=== PATIENT | male | born 1940 | race Caucasian/White ===

== ENCOUNTER 2024-12-17 00:02 | Inpatient (IN) | payer MEDICARE, OTHER, SELFPAY ==
[2024-12-16 20:13] VITALS: BP 153/70
[2024-12-16 20:14] VITALS: BP 153/70
[2024-12-16 20:15] VITALS: BMI 24.0
[2024-12-16 20:29] VITALS: BP 137/58
[2024-12-16 20:41] LABS: % Basophils 0.3 % (0-2); % Eosinophils 0.4 % (0-6); % Immature Granulocytes 0.4 % (0-0.5); % Monocytes 5.2 % (1.7-9.3); % Neutrophils 86.7 % (42.2-75.2); Absolute Basophils 0.1 10^3/uL (0-0.2); Absolute Eosinophils 0.1 10^3/uL (0-0.7); Absolute Immature Granulocytes 0.1 10^3/uL (0-0.05); Absolute Lymphocytes 1.1 10^3/uL (1.2-3.4); Absolute Monocytes 0.8 10^3/uL (0.1-0.6); Absolute Neutrophils 13.8 10^3/uL (1.4-6.5); Hematocrit 36.9 % (39.0-52.0); Hemoglobin 12.5 g/dL (13.0-18.0); Mean Corp Hgb Conc. 33.9 g/dL (33.0-37.0); Mean Corpuscular Hgb 30.5 pg (27.0-31.0); Mean Platelet Volume 10.4 fL (7.4-10.4); Nucleated Red Blood Cells % 0 % (-); Platelet Count 168 10^3/uL (130-400); Red Cell Dist. Width 14.1 % (11.5-14.5); White Blood Cell Count 15.9 10^3/uL (4.8-10.8)
[2024-12-16 21:00] VITALS: BP 116/69
[2024-12-16 21:00] LABS: Lactic Acid 2.4 mmol/L (0.7-2.0)
[2024-12-16 21:01] LABS: ALT (SGPT) 21 U/L (0-50); AST (SGOT) 24 U/L (17-59); Albumin 4.5 g/dl (3.5-5.0); Alkaline Phosphatase 141 U/L (38-126); Blood Urea Nitrogen 33 mg/dl (9-20); Calcium 10.6 mg/dl (8.4-10.2); Carbon Dioxide 20 mmol/L (22-30); Chloride 106 mmol/L (98-107); Estimated Creatinine Clearance 55 ml/min; Glucose 139 mg/dl (70-99); Potassium 4.5 mmol/L (3.5-5.1); Sodium 139 mmol/L (135-145); Total Bilirubin 0.9 mg/dl (0.2-1.3); Total Protein 6.8 g/dl (6.3-8.2); eGFR > 60.00
[2024-12-16 21:03] LABS: COVID-19 Antigen Negative (Negative)
[2024-12-16] MEDS: TYLENOL 650 MG PO (21:04)
[2024-12-16 22:06] VITALS: BP 112/56
--- NOTE | 2024-12-16 22:14 | ED.GENMED ---
History of Present Illness
General
Chief Complaint: Change in Mental Status
Source: patient and spouse
Exam Limitations: none
Time Seen by Provider: 12/16/24 20:16
Nursing documentation reviewed up to this point in time: agreed with
History of Present Illness
History of Present Illness:
The patient is an 84-year-old male with a known history of chronic obstructive pulmonary disease (COPD), atrial fibrillation, prior cerebrovascular accidents, and a history of heart surgery including a triple bypass, presenting with altered mental
status and fever. According to his spouse, the patient has not been acting like himself and was noted to have a fever on arrival at the emergency department. Approximately one month ago, the patient underwent extraction of teeth and has been unable
to use his BiPAP due to associated pain and the presence of stitches. He has been managing with four liters of oxygen during sleep and is on a mechanical soft diet with thickened liquids. The patient has a history of aspiration, which necessitates
sleeping with an elevated head.
His spouse reports increased weakness, difficulty in getting out of bed, significantly reduced appetite with consumption of only 20% of meals, and constipation, with no bowel movements noted since the previous day. The patient also reports
experiencing central chest pain, abdominal pain, and has vomited once. He denies any recent upper respiratory symptoms like nasal congestion or sore throat, but he has been coughing.
In terms of clinical observations, his heart rate was reportedly high and oxygen saturation was low at 87% when checked. The patients spouse also mentioned that his INR was measured at 1.4, which they found concerning due to his Coumadin usage. The
patient usually has bowel movements three times a day but has not had one recently, contributing to abdominal discomfort.
Past History
Past History
ED Past Medical History: Arrthythmia, COPD, HTN, Valvular disease and Other (Pulmonary hypertension)
ED Past Surgical History: Cardiac
Social History
Personal:
Living: with family
Employment: Retired
Review of Systems
Review of Systems
Allergies reviewed?: Yes
All Other Systems: ROS reviewed and negative except as documented in HPI and ROS
Phy Exam
Physical Exam
Physical Exam:
GENERAL: Alert , in no apparent distress
EYE: pupils equal and reactive
NECK: Supple, no significant adenopathy.
ENT: o/p clr, mmm.
CARDIAC: Regular rate and rhythm .
LUNGS: Clear breath sounds bilaterally, no acute respiratory distress, no wheezes/rales/rhonchi
ABDOMEN: Soft, without focal tenderness, no r/g, no cvat
NEUROLOGICAL: Alert no focal neuro deficits
SKIN: Warm and dry, skin intact.
MUSCULOSKELETAL: No edema, well perfused.
PSYCH: Normal and appropriate interaction.
Course
Orders/Labs/Results
Orders:
Orders
12/16/24 20:06
Electrocardiogram (*1) Urgent
Reason for Study: Tachycardia
EKG- Treatment ONCE
12/16/24 20:16
Chest [CR Chest - 2 Views ] Urgent
Comment:
Reason For Exam: fever
12/16/24 20:26
CMP [Comprehensive Metabolic Panel] Urgent
COVID-19 Antigen Urgent
Source: Nasal Swab
Complete Blood Count/With Diff Urgent
Lactic Acid Urgent
Blood Culture Urgent
HARSH Source: Blood/Venous
Specimen Description:
Blood Culture Urgent
HARSH Source: Blood/Venous
Specimen Description:
Influenza A+B Rapid Molecular Urgent
HARSH Source: Nasal Swab
Specimen Description:
12/16/24 21:01
Acetaminophen [Tylenol] 650 mg .ROUTE .STK-MED ONE
12/16/24 21:04
Acetaminophen [Tylenol] 650 mg PO NOW STA
12/16/24 21:27
CT Abd/Pel (IV only)-DH only Urgent
Comment:
Reason For Exam: abd pain fever, juan drain in place
12/16/24 22:15
CT Head W/o Iv Contrast Urgent
Comment:
Reason For Exam: AMS
PT/INR [Prothrombin Time] Urgent
12/16/24 22:16
Cefepime HCl [Maxipime] 1,000 mg IV NOW STA
Vancomycin [Vancocin] 2,000 mg 0.9% Sodium Chloride 500 ml [Nss] 500 ml IV NOW
12/16/24 22:18
0.9% Sodium Chloride 1000 ml [Nss] 1,000 ml IV BOLUS
Abnormal Lab Results
12/16/24
20:26
WBC 15.9 H 10^3/uL
(4.8-10.8)
RBC 4.10 L 10^6/uL
(4.70-6.10)
Hgb 12.5 L g/dL
(13.0-18.0)
Hct 36.9 L %
(39.0-52.0)
Abs Immat Gran (auto) 0.1 H 10^3/uL
(0-0.05)
Absolute Neuts (auto) 13.8 H 10^3/uL
(1.4-6.5)
Absolute Lymphs (auto) 1.1 L 10^3/uL
(1.2-3.4)
Absolute Monos (auto) 0.8 H 10^3/uL
(0.1-0.6)
Neutrophils % 86.7 H %
(42.2-75.2)
Lymphocytes % 7.0 L %
(20.5-51.1)
Carbon Dioxide 20 L mmol/L
(22-30)
BUN 33 H mg/dl
(9-20)
Glucose 139 H mg/dl
(70-99)
Lactic Acid 2.4 H mmol/L
(0.7-2.0)
Calcium 10.6 H mg/dl
(8.4-10.2)
Alkaline Phosphatase 141 H U/L
(38-126)
12/16/24 20:26
12/16/24 20:26
Vital Signs
Initial and Last Documented VS:
Initial Vital Signs
Pulse Resp BP
95 31 153/70
12/16/24 20:13 12/16/24 20:13 12/16/24 20:13
Last Documented Vital Signs
Temp Pulse Resp BP Pulse Ox
102.4 F H 84 30 112/56 93
12/16/24 20:14 12/16/24 22:06 12/16/24 22:06 12/16/24 22:06 12/16/24 22:06
MDM/Problems Addressed
MDM/Problems Addressed:
84-year-old male presenting to the emergency department today with concerns of fevers shakiness confusion. Here temperature of 102.4 pulse ox is dropping to the 80s while on nasal cannula.
Arrangements for a chest X-ray to rule out aspiration pneumonia and assess lung status.
- A computed tomography (CT) scan of the abdomen to evaluate for possible gastrointestinal causes of fever and abdominal pain.
- Initiated intravenous antibiotics.
Patient peers to have pneumonia on chest x-ray as well as CT scan. Plan to admit for further treatment and monitoring.
*Pulse Oximetry
Patient hypoxic: yes (87% on 2L NC improving on 4L)
*Critical Care Note
Total Time (30-74mins, 75-104mins- exclusive of procedures): Not Applicable
ED Attending Note
-
Portions of this chart may have been created with voice recognition software.� Occasional wrong word or��sound alike� substitutions may have occurred due to the inherent limitations of voice recognition software.
Discharge Plan
Departure
Patient Disposition: Admit
Date of Disposition: 12/16/24
Time of Disposition: 22:25
Admit to: IMU
Admit to doctor: Indira
Presentation/result/management discussed w/ accepting MD/DO: Hospitalist
Patient with high blood pressure during this ER visit?: No
Condition: Fair
Covid-19: Not Applicable
Discharge Problem:
Pneumonia
Prescriptions:
No Action
terazosin 5 MG capsule
5 mg PO HS
metoprolol succinate 50 MG tablet extended release 24 hr
50 mg PO DAILY
cyanocobalamin (vitamin B-12) 1,000 MCG tablet
1,000 mcg PO DAILY
warfarin [Jantoven] 2.5 MG tablet
5 mg PO SUTUWETHSA
warfarin [Jantoven] 2.5 MG tablet
2.5 mg PO MOFR
amlodipine 5 MG tablet
5 mg PO DAILY
spironolactone 25 MG tablet
25 mg PO DAILY
pantoprazole 40 MG tablet,delayed release (DR/EC)
40 mg PO DAILY
simvastatin 20 MG tablet
20 mg PO HS
allopurinol 300 MG tablet
450 mg PO DAILY
furosemide 20 MG tablet
20 mg PO DAILY
colchicine 0.6 MG tablet
0.6 mg PO Q48H
escitalopram oxalate 20 MG tablet
20 mg PO DAILY
dutasteride [Avodart] 0.5 MG capsule
0.5 mg PO Q48H
bupropion HCl 150 MG tablet extended release 24 hr
150 mg PO DAILY
cholecalciferol (vitamin D3) 1,000 UNITS tablet
1,000 units PO DAILY
levocetirizine [Xyzal] 5 MG tablet
5 mg PO DAILY
melatonin 5 MG tablet
5 mg PO HS
multivitamin with folic acid [Tab-A-Annie] 1 TABLET tablet
1 tab PO DAILY
Referrals:
Jose Roth MD [Family Provider]
Interventions
Interventions:
*Risk Screen - Suicide Last Done: 12/16/24 20:04
*General Assessment Last Done: 12/16/24 20:05
*Neglect/Abuse Screening Last Done: 12/16/24 20:04
*ED- Fall Risk Assessment Last Done: 12/16/24 20:05
*ED COVID-19 Vaccine History Last Done: 12/16/24 20:05
ED- Pulmonary Assessment Last Done: 12/16/24 20:30
ED- Neurological Assessment Last Done: 12/16/24 20:30
ED- Cardiac Assessment Last Done: 12/16/24 20:30
ED Swallowing Screen Last Done: 12/16/24 21:00
Discharge Date and Time
Print Language: ECUADOREAN
--- NOTE | 2024-12-16 22:21 | HPS.HSE ---
Family Physician
-
Family Physician: Jose Roth
Chief Complaint
-
cough, epigastric pain
History of Present Illness
84-year-old male with a known history of chronic obstructive pulmonary disease (COPD), atrial fibrillation, prior cerebrovascular accidents, and a history of heart surgery including a triple bypass, presenting with altered mental status and fever.
upon my assessment patient is confused, not able to provide meaningful story. patient complained of KAY and epigastric pain.
patient presented from [facility] with worsening weakness. patient denied fever, chills, chest pain, sob. denied diarrhea. he stated vomited once. denied dysuria or hematuria.
as per ER note, patient noted confused. the patient underwent extraction of teeth and has been unable to use his BiPAP due to associated pain and the presence of stitches. He has been managing with four liters of oxygen during sleep and is on a
mechanical soft diet with thickened liquids. The patient has a history of aspiration, which necessitates sleeping with an elevated head.
patient was noted hypoxic on arrival. he was also noted septic due to pneumonia.
Patient received cefepime and Vanco in ER. Patient was in normal saline x 1 bag. Blood culture sent from ER.admitting for further managment.
Medical History
Past Medical History
Past Medical History: Reports Other
Additional Past Medical History:
A. 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
heart failure, obstructive sleep apnea, FABIAN, gout, dysphagia, partial loss of teeth
Past Surgical History: Reports Other
Additional Past Surgical History:
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
Social History
Tobacco: Non-smoker
Alcohol: None
Drug: None
Personal:
Living: [facility]
Family History
Family History: Not pertinent
Allergies / Home Medications
Allergies reflects when Allergies were last updated in [facility].
Home Medications with original date entered in [facility]
Allergy/Medication List:
Allergies
Allergy/AdvReac Type Severity Reaction Status Date / Time
cephalexin (From Keflex) Allergy Itching Verified 05/05/21 14:18
Home Medications
allopurinol 300 mg tablet 450 mg PO DAILY 05/05/21
amlodipine 5 mg tablet 5 mg PO DAILY 05/05/21
bupropion HCl 150 mg 24 hr tablet, extended release 150 mg PO DAILY 05/05/21
cholecalciferol (vitamin D3) 25 mcg (1,000 unit) tablet 1,000 units PO DAILY 05/05/21
colchicine 0.6 mg tablet 0.6 mg PO Q48H 05/05/21
cyanocobalamin (vitamin B-12) 1,000 mcg tablet 1,000 mcg PO DAILY 05/05/21
dutasteride 0.5 mg capsule (Avodart) 0.5 mg PO Q48H 05/05/21
escitalopram oxalate 20 mg tablet 20 mg PO DAILY 05/05/21
furosemide 20 mg tablet 20 mg PO DAILY 05/05/21
levocetirizine 5 mg tablet (Xyzal) 5 mg PO DAILY 05/05/21
melatonin 5 mg tablet 5 mg PO HS 05/05/21
metoprolol succinate 50 mg tablet,extended release 24 hr 50 mg PO DAILY 05/05/21
multivitamin with folic acid 400 mcg tablet (Tab-A-Annie) 1 tab PO DAILY 05/05/21
pantoprazole 40 mg tablet,delayed release 40 mg PO DAILY 05/05/21
simvastatin 20 mg tablet 20 mg PO HS 05/05/21
spironolactone 25 mg tablet 25 mg PO DAILY 05/05/21
terazosin 5 mg capsule 5 mg PO HS 05/05/21
warfarin 2.5 mg tablet (Jantoven) 2.5 mg PO MOFR 05/05/21
warfarin 2.5 mg tablet (Jantoven) 5 mg PO SUTUWETHSA 05/05/21
Review of Systems
-
Constitutional: Reports No Symptoms
EENT: Reports No Symptoms
Respiratory: Reports Cough
Cardiac: Reports No Symptoms
Abdomen/GI: Reports Abdominal Pain (Epigastric)
: Reports No Symptoms
Musculoskeletal: Reports No Symptoms
Skin: Reports No Symptoms
Neurological: Reports No Symptoms
Endocrine: Reports No Symptoms
Hematologic/Lymphatic: Reports No Symptoms
Psych: Reports No Symptoms
Physical Exam
Vital Signs
Vital Signs
Temp Pulse Resp BP Pulse Ox
102.4 F H 84 30 112/56 93
12/16/24 20:14 12/16/24 22:06 12/16/24 22:06 12/16/24 22:06 12/16/24 22:06
Physical Exam
General: Well Developed, Well Nourished and No Apparent Distress
HEENT: NormoCephalic, Moist mucous membranes and Atraumatic
Respiratory: Clear
Cardiac: S1/S2 and Regular Rhythm; No Murmur or Rub
GI: Soft, Non Tender, Non Distended and Normal Bowel Sounds; No Organomegaly
Rectal: Deferred by Provider
Genito-urinary: Other (Cholecystostomy tube)
Musculoskeletal: No Clubbing, No Cyanosis and No Edema
Skin: No Rash
Neuro: Nonfocal/grossly intact
Laboratory Results
-
12/16/24 20:26
12/16/24 20:26
Laboratory Results
Lactic Acid 2.4 mmol/L (0.7-2.0) H 12/16/24 20:26
Total Bilirubin 0.9 mg/dl (0.2-1.3) 12/16/24 20:26
AST 24 U/L (17-59) 12/16/24 20:26
ALT 21 U/L (0-50) 12/16/24 20:26
Alkaline Phosphatase 141 U/L (38-126) H 12/16/24 20:26
Data Reviewed
-
Diagnostic Radiology: Report Reviewed by me
CT Scan: Report Reviewed by me
Lab Data: Labs Reviewed by me
Impression/Plan
-
# Metabolic encephalopathy/acute respiratory failure secondary to pneumonia concern for aspiration
# Sepsis as evidenced by WBC 15.9, temp 102.4, lactic 2.4
- 80s on room air., Patient is requiring 2 L of oxygen
- Continue supplemental oxygen to keep sat greater than 95, wean as tolerated
- Tylenol as needed for fever or pain
- COVID and flu negative
- CT with right lower lobe pneumonia
- Chest x-ray with bibasilar pneumonia
- IV cefepime and Vanco continued
-obtain urine legionella, strep pneumoniae, and MRSA
- Speech consulted
# Gout
-Allopurinol continued
# Essential hypertension
- Amlodipine held due to soft BP
# BPH
- Dutasteride, terazosin continue
# History of CHF
- Not in acute exacerbation
- Hold Lasix spironolactone
- Strict FRANCESCA, daily weight
# Paroxysmal A-fib
- EKG with junctional rhythm
- Metoprolol and Coumadin continued
# GERD
- Pantoprazole continued
# Depression
- Pristiq continue
# Hyperlipidemia
- Simvastatin continued
#cholecystostomy tube
#DVT prophylaxis
-warfarin
#CODE status
-patient is CPR, no intubation.
[2024-12-16 22:39] LABS: INR 1.39; PT 17.6 Sec (11.4-14.6)
--- NOTE | 2024-12-16 22:56 | W.PN.UPDATE ---
Addendum entered and electronically signed by Julio Orellana MD 12/16/24 23:34:
Limited DNR : Yes to CPR. No to intubation
Original Note:
Update Note
Progress Note Update
This note serves as an addendum to the H&P by patching machine operator DAWN Shwetha LANIER
HPI
84F SNF Res at local facility HX COPD, on BiPAP for VERENA, on 4 L home O2 at night , Perm AF, chr warfarin, CAD / CABG, HTN, Hypertension, CVA, GERD seen at ER:
- pw AMS and fever ( T max 102.4, POx was 87% on RA on arrival to ER)
- he cannot use BiPAP HS s/p teeth extraction 1 month ago due to pain
- currently on mechanicall soft diet with thickened liquids
- Increasing weaker
- difficulty in getting out of bed,
- significantly reduced appetite with consumption of only 20% of meals, and constipation, with no bowel movements
Reviewed VS: T 102.4, RR30 POx as low as 90%
PE
Gen: no apparent distress
HEENT: anicteric
Neck: supple
Lungs:
Cor: RRR S1 S2
Abdomen: Soft, without focal tenderness
CHECKER PRODUCT DESIGN: NFND
MS:
Psych: confused
Data
WCC 15.9
TB 0.9
LA 2.4
NEG Flu A & B
NEG Covid
2 BCx sent
12/16/24 CXR
Bibasilar pneumonia, right greater than left.
12/16/24 CT Abd/Pel (IV only)-DH only
1. Cholecystostomy tube present within the region of the gallbladder fundus.
No overt surrounding inflammatory change or fluid collections.
2. Suspect right lower lobe pneumonia.
3. Moderate L4 compression fracture, age indeterminate. Recommend correlation for any point tenderness in this region.
12/16/24 HCT
- Volume loss and decreased density involving the right hemisphere compatible with old infarction.
- Focus of calcification on the right in the region of the right middle cerebral artery, in the region of the M1 segment.
- This could represent calcified embolus. However, exact timeframe for this calcification is uncertain, with no comparison examination available.
- No evidence of acute intracranial hemorrhage.
Last hospitalist admission: 05/05/2021 - 05/05/2021
FINAL DIAGNOSES:
1. Acute cerebrovascular accident.
ASSESSMENT & PLAN
Severe sepsis due to bibasilar PNA Rt > Lt - Concern with aspiration PNA
SIRS ( WCC 15.9 + T 102.4 + RR30) with LA 2.4
Associated acute on chr Hypoxic RF
Relatively hypotensive
- NEG Flu A & B, NEG Covid
- 2 BCx sent
- switch to IV LR @ 80/H
- Hold CENTRAL SCHEDULER spironolactone and Lasix due to relative hypotension and severe sepsis
- Agreed with IV CFP 2gm q8 plus IV Vacnocmycin
- check MRSA screen
- Titrate supplemental O2 to keep POx > 93
Suspect early TME due to sepsis
- aspiration precaution
- c/w CENTRAL SCHEDULER mechanical soft with thicken liquid
- Speech evaluate e and treat
HX COPD
HX VERENA
- cannot use CPAP /BiPAP due to mouth pain s/p tooth extraction
- currently POx > 95 on 2 L NC O2
- c/w CENTRAL SCHEDULER COPD Meds
HX Chr diabolic CHF / presumed HFpEF
- daily wt
- Hold CENTRAL SCHEDULER spironolactone and Lasix due to relative hypotension and severe sepsis
- daily Wt
Prx AF on Warfarin
HC MVR
HX CVA: HCT evidence of old infarction at right cerebral hemisphere
- f/u INR
- Goal INR 2-3 , titrate warfarin
Pre existing condition : Pending Rx reconciliation
Hyperlipidemia
HX CABG
Hypertension.
Gastroesophageal reflux disease.
BPH
HX recurrent gout episodes.
Chronic insomnia.
Depression.
DVT Px: on CENTRAL SCHEDULER chronic Warfarin
DNR per paper work
IMU
[2024-12-16] MEDS: NSS 1000 IV (23:24)
[2024-12-16 23:27] VITALS: BP 112/56
[2024-12-16] MEDS: MAXIPIME 1000 MG IV (23:28)
[2024-12-16] MEDS: VANCOCIN 540 MG IV (23:56)
[2024-12-17] VITALS (18 sets, daily range): BP systolic 90–122; BP diastolic 52–69; PULSE 60; O2SAT 95; BMI 21.7
--- NOTE | 2024-12-17 01:17 | PTCARENOTE ---
Patient transported from ED via stretcher, and pulled over to the bed. Report received from EDER Wilson. Pt receiving 1L NSS bolus and Vanco see MAR. Pt oral temp 99.4 oral. Pt AAOx3, slow to speak, some garbled speech. Pt is drowsy. L sided defecits
from hx CVA. Pt has decreased sensation on the left side. PERRLA. NSR on the monitor with PVCs. Pt on 3L NC 94%. Rhonchi with crackles at the bases. Pt has a RLQ cholecystoscopy. Abdomen is round and distended. Pt last BM 12/15/24. Umbilical hernia
present. Pt has a non-blanchable reddened area to the sacrum, sacral foam applied. Trace scrotal edema. MASD to the groin. Pt NPO until further evaluation from speech. Speech is consulted. Pt Ana is at the bedside. Pt staying the night.
Pt tolerating frequent turning and repositioning. Call dejesus within reach.
[2024-12-17 02:26] LABS: Lactic Acid 1.8 mmol/L (0.7-2.0)
[2024-12-17] MEDS: TYLENOL 650 MG PO ×2 (04:06→21:58)
[2024-12-17] MEDS: LR 1000 IV ×2 (04:23→22:37)
[2024-12-17 06:30] LABS: Lactic Acid 2.3 mmol/L (0.7-2.0)
[2024-12-17 06:32] LABS: Blood Urea Nitrogen 33 mg/dl (9-20); Calcium 9.9 mg/dl (8.4-10.2); Carbon Dioxide 21 mmol/L (22-30); Chloride 108 mmol/L (98-107); Estimated Creatinine Clearance 51 ml/min; Glucose 148 mg/dl (70-99); Potassium 4.5 mmol/L (3.5-5.1); Sodium 138 mmol/L (135-145); eGFR > 60.00
[2024-12-17 06:34] LABS: Hematocrit 30.8 % (39.0-52.0); Hemoglobin 10.5 g/dL (13.0-18.0); Mean Corp Hgb Conc. 34.1 g/dL (33.0-37.0); Mean Corpuscular Hgb 30.8 pg (27.0-31.0); Mean Corpuscular Volume 90.3 fL (80.0-94.0); Mean Platelet Volume 10.7 fL (7.4-10.4); Platelet Count 141 10^3/uL (130-400); Red Blood Cell Count 3.41 10^6/uL (4.70-6.10); Red Cell Dist. Width 13.9 % (11.5-14.5); White Blood Cell Count 24.9 10^3/uL (4.8-10.8)
--- NOTE | 2024-12-17 07:36 | PHA.VAN.IN ---
Assessment
- Assessment
Renal Function: Appears similar to baseline
Maximum Temperature: 102.4 - 12/16/24 20:14
Concomitant Antimicrobials: cefepime
AUC Dosing Plan
- Dosing Variables
Dosing Weight (kg): 72.5
Dosing CrCl (ml/min): 51
Vd coefficient (L/kg): 0.7
- Empiric Dosing
Initial / Loading Dose: 2000 mg x 1 administered around midnight 12/17/24
Maintenance Regimen: 1250 mg q24h - first dose today 1200
Estimated AUC (mcg*h/mL): 546
Estimated Peak (mcg*h/mL): 36.5
Estimated Trough (mcg/ml): 12.8
Estimated Half Life (H): 14.8
- Monitoring
No levels ordered at this time: consider levels when pt nears steady state
Pharmacokinetics Vancomycin I
- -
Patient Age: 84
Patient Sex: Female
Vancomycin Day #: 1
Indication: Pulmonary/Respiratory
Requesting Provider: Shwetha
Pertinent Antimicrobial Allergies:
cephalexin - itching
Height / Weight:
Height 6 ft
Actual Weight 72.5 kg
Pertinent Past Medical History: COPD
- Vital Signs / Lab Results
Temp Pulse Resp BP Pulse Ox
98.1 F 63 17 106/64 94
12/17/24 03:15 12/17/24 03:00 12/17/24 03:00 12/17/24 02:34 12/17/24 06:11
Lab Results - Hematology
12/16/24 12/17/24
20:26 05:53
WBC 15.9 H 24.9 H
Lab Results - Chemistry
12/16/24 12/17/24
20:26 05:53
BUN 33 H 33 H
Creatinine 1.1 1.1
Estimated Creat Clear 55 51
Albumin 4.5
12/16/24 12/17/24 12/17/24
20:26 01:50 05:53
Lactic Acid 2.4 H 1.8 2.3 H
Microbiology Results
12/16/24 20:26 Influenza Types A & B (GINA) - Final
Nasal Swab Negative for Influenza A & B, NAAT
Negative results must be combined with clinical observations
and patient history.
Nucleic Acid Amplification test (NAAT)performed on the
[employer] platform.
[2024-12-17] MEDS: REFRESH CELLUVISC GEL 1 DROPS BOTH EYES ×3 (09:03→21:07)
[2024-12-17] MEDS: STERILE WATER FOR INJECTION 10 ML IV ×3 (09:03→23:20)
[2024-12-17] MEDS: MAXIPIME 1000 MG IV ×3 (09:03→23:20)
[2024-12-17] MEDS: FLUSH (NSS) 2 FLUSH IV (09:04)
[2024-12-17 09:09] LABS: Lactic Acid 1.8 mmol/L (0.7-2.0)
--- NOTE | 2024-12-17 09:55 | PTOTSP ---
Speech Language Pathology
Pt seen for clinical bedside swallow evaluation. present at bedside who believes he had a VSE completed at [facility] a few months ago, which noted silent aspiration and recommended modified diet. Pt is on mechanical soft solids/mildly thick
liquids with ensure clear from home thickened to moderately thick consistency per her report. P.O. trials of puree, moderately thick liquid via straw, and thin liquid via straw provided. Adequate oral phase noted with trials provided. Delayed
cough noted with thin liquids via straw. Discussed VSE vs FEES. chose VSE.
Recommend:
(1) VSE
(2) NPO until study completed
(3) Oral care 4x/day with suctioning as needed
(4) Non-oral meds until VSE completed
(5) LAST REMODELER REPAIRER to continue to follow
[2024-12-17] MEDS: COUMADIN PO ×2 (11:17→11:18)
[2024-12-17] MEDS: KCL PO (11:19)
[2024-12-17] MEDS: PROTONIX PO ×2 (11:20→14:35)
[2024-12-17] MEDS: PRISTIQ PO (11:20)
[2024-12-17] MEDS: LOPRESSOR PO (11:20)
[2024-12-17] MEDS: PROSCAR 5 MG PO (11:20)
[2024-12-17] MEDS: NON-FORMULARY ITEM 1 UNIT PO ×2 (11:20→20:20)
--- NOTE | 2024-12-17 11:20 | W.PN.HOSP.TC ---
Today's Communication/Plan
-
See plan
Assessment / Plan
Assessment / Plan
Impression:
Acute hypoxic respiratory failure secondary to pneumonia.
Sepsis secondary to above present on admission (fever, hypotension, TME)
Toxic metabolic encephalopathy secondary to sepsis and hypotension.
Bilateral right greater than left pneumonia secondary to aspiration
Lactic acidosis
Conditions prior to admission:
History of CVA with left hemiparesis
CAD status post CABG
Chronic atrial fibrillation/flutter
Anticoagulation with Coumadin
Essential hypertension.
CHF unknown EF.
COPD
Obstructive sleep apnea
Acute cholecystitis treated with percutaneous cholecystostomy tube currently in place
GERD
FABIAN
Poor dentition/partial loss of teeth with current extraction.
BPH
Gout
Plan:
Acute hypoxic respiratory failure secondary to bilateral pneumonia
Aspiration pneumonia
Sepsis with hypotension.
Toxic metabolic encephalopathy secondary to above.
Reported to have hypoxia in mid 80s on room air prior to admission from nursing facility.
Noted elevated lactic acid level
Noted leukocytosis
Chest x-ray with bilateral right greater than left infiltrate also seen on the CT scan.
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
Recent dental work with extraction while waiting for dentures definitely increased aspiration risk.
Continue oxygen supplementation
Aspiration precautions.
Speech and swallow evaluation noted with plan for VSE.
On modified diet prior to admission with mechanical soft and nectar thick liquids.
Continue n.p.o. except meds at this point pending VSE.
Broad-spectrum antibiotics vancomycin/cefepime pending cultures. If MRSA screen negative would consider to narrow to Unasyn.
Continue IV fluids and follow lactic acid trend
COPD/obstructive sleep apnea
Not on supplemental oxygen prior to admission.
Had been on CPAP at night
Continue O2 supplementation
CAD.
Essential hypertension
Continue present regimen including metoprolol and Hytrin
Monitor blood pressure trend while on IV fluids
Continue statin
Permanent atrial fibrillation/flutter.
Continue metoprolol for rate control
Continue anticoagulation with Coumadin.
Bridged to therapeutic INR with Lovenox weight-based
Percutaneous cholecystostomy in place
Abdominal examination benign.
Normal LFT on presentation.
CT scan of the abdomen and pelvis with no acute abnormalities confirming cholecystostomy placement
GERD
Continue PPI
BPH
Monitor for retention
Continue Proscar
Gout continue allopurinol
Anticipated Discharge: > 48 hours
Subjective/Interval History
-
Date of Service: December 17, 2024
Objective Data
-
Labs:
Laboratory Results
12/17/24
05:53
WBC 24.9 H
Hgb 10.5 L
Hct 30.8 L
Plt Count 141
Sodium 138
Potassium 4.5
Chloride 108 H
Carbon Dioxide 21 L
BUN 33 H
Creatinine 1.1
Glucose 148 H
Calcium 9.9
Vital Signs:
Vital Signs
Temp Pulse Resp BP Pulse Ox
98.1 F 56 17 90/60 94
12/17/24 03:15 12/17/24 06:00 12/17/24 06:00 12/17/24 06:00 12/17/24 06:11
I&O
12/16/24 12/17/24 12/18/24
06:59 06:59 06:59
Output Total 200 / 200
Balance -200 / -200
Physical Exam
-
General: Well Developed and No Apparent Distress
HEENT: Normocephalic, Atraumatic and Moist Mucous Membranes
Respiratory: Clear to Auscultation
Cardiac: Regular Rhythm and S1/S2; Negative Murmur, Rub or Gallop
GI: Soft, Nontender, Nondistended, Normal Bowel Sounds and Other (Right upper quadrant cholecystostomy tube in place); Negative Organomegaly
Rectal: Deferred by Provider
Musculoskeletal: No Clubbing, No Cyanosis and No Edema
Skin: Negative Rash
Neuro: Awake, Alert, Oriented and Other (Left hemiparesis)
[2024-12-17] MEDS: ZYRTEC PO (11:22)
[2024-12-17] MEDS: NON-FORMULARY ITEM 1 UNIT TOPICAL (11:30)
--- NOTE | 2024-12-17 12:00 | PTOTSP ---
Speech Language Pathology
VIDEOFLUOROSCOPIC SWALLOWING EXAMINATION (VSE) completed. Pt with mild oral and mod-severe pharyngeal dysphagia. Trace to mild pharyngeal residue noted. Penetration and/or aspiration noted with all consistencies. This was typically of a trace
amount, but did not clear with a cued cough, as cough was extremely weak. Penetration/aspiration noted at variable stages of swallowing (prior to swallow initiation at times, during swallow at times, and following swallow from spillover of residue
at times). Pt is at high risk for aspiration and aspiration related consequences. Currently with bibasilar PNA.
Recommend:
(1) NPO and GOC discussion
(2) Allow ice chips post oral care given supervision per Aspiration Risk Hydration Protocol (ARHP)
(3) Oral care 4x/day with suctioning as needed
(4) Non-oral meds
(5) BISQUE PLACER to continue to follow
[2024-12-17] MEDS: VANCOCIN 275 MG IV (13:23)
--- NOTE | 2024-12-17 13:31 | CM ---
Addendum entered by Dee Dee Alcantara 12/17/24 14:54:
Per liaison at [facility] patient is a LTC patient with a bed hold and was current with part B services when he was transferred to . Please call Charissa at [phone] for arrangements to return patient to SNF and Kelli STEINBERG at [phone] with any
questions about medical care. Per Liaison SNF is able to work with Peg tube if needed but will need time to get product as they would not have it in the facility. CM will continue to follow for discharge planning needs.
Plan; return to SNF; when medically appropriate.
Original Note:
Patient seen at bedside with in IMU. Patient stated that patient is LTC at [facility]. Patient very concerned about pending swallowing eval and CM called to [facility]; [phone], VM left for admissions to confirm patient
status at facility and ability to return. Patient PCP is Dr. Roth and patient states that they use the [facility] pharmacy or the [facility] mail order. Patient stated that patient is well known at [facility] and that she
had told the EMT not to take him to [facility]. CM will continue to follow for discharge planning needs.
Plan; return to SNF; [facility] pending confirmation of patient status and level of care needs.
--- NOTE | 2024-12-17 13:33 | RESPNOTE ---
Bipap was ordered-- spoke with patient and at bedside, patient has not been wearing machine since 12/02 since having oral surgery. Was advised by dentist not to wear machine due to the pain, has been using 3 liters HS at home. NO machine left
bedside family and patient aware machines are available if needed.
[2024-12-17] MEDS: LOVENOX 70 MG SC (14:27)
[2024-12-17] MEDS: COUMADIN 2.5 MG PO (14:31)
[2024-12-17] MEDS: COUMADIN 1 MG PO (14:31)
[2024-12-17] MEDS: PRISTIQ 25 MG PO (14:34)
[2024-12-17] MEDS: ZYRTEC 10 MG PO (14:34)
[2024-12-17] MEDS: KCL 20 MEQ PO (14:34)
[2024-12-17] MEDS: ZYLOPRIM 450 MG PO (14:46)
--- NOTE | 2024-12-17 19:29 | PTCARENOTE ---
Pt's at bedside throughout the day shift. Complete care provided to pt today, he is alert and oriented x 3 but pt loses focus and thoughts drift and he is forgetful. Speech eval today reveals weak swallow but after discussion with MD pt, pt's
agree to comfort feeds. Pt fed dinner meal by staff small bites pureed and sip with straw. Pt noted to be coughing at times, pt instructed to tuck chin, clear with coughing and staff provided time for slow safe feed. no resp distress during
meal. Pulse ox in 90% with 2L nc.
[2024-12-17] MEDS: LOPRESSOR 12.5 MG PO (20:19)
[2024-12-17] MEDS: MELATONIN 5 MG PO (21:07)
[2024-12-17] MEDS: HYTRIN 5 MG PO (21:07)
[2024-12-17] MEDS: LIPITOR 10 MG PO (21:07)
--- NOTE | 2024-12-17 23:44 | PTCARENOTE ---
Pt able to answer orientation questions appropriately, but does appear to be confused at times. Pt agreeable, cooperative with care. Occasionally calls out for help. Maintained on 2L O2, SaO2 93%. Assessment as documented. Q2T schedule in place to
prevent further skin breakdown. IVF maintained. Althea drain remains intact. Call dejesus within reach. Bed alarm engaged for pt safety.
[2024-12-18] VITALS (10 sets, daily range): BP systolic 99–120; BP diastolic 53–65; BMI 22.5
[2024-12-18] MEDS: VANCOCIN 275 MG IV (05:21)
[2024-12-18] MEDS: LOVENOX 70 MG SC (05:22)
[2024-12-18 06:01] LABS: INR 2.37; PT 26.3 Sec (11.4-14.6)
[2024-12-18 06:16] LABS: Hematocrit 29.7 % (39.0-52.0); Mean Corp Hgb Conc. 33.7 g/dL (33.0-37.0); Mean Corpuscular Hgb 30.4 pg (27.0-31.0); Mean Corpuscular Volume 90.3 fL (80.0-94.0); Mean Platelet Volume 10.7 fL (7.4-10.4); Platelet Count 121 10^3/uL (130-400); Red Blood Cell Count 3.29 10^6/uL (4.70-6.10); Red Cell Dist. Width 14.4 % (11.5-14.5); White Blood Cell Count 13.5 10^3/uL (4.8-10.8)
[2024-12-18 06:17] LABS: Blood Urea Nitrogen 34 mg/dl (9-20); Calcium 9.7 mg/dl (8.4-10.2); Carbon Dioxide 22 mmol/L (22-30); Chloride 109 mmol/L (98-107); Estimated Creatinine Clearance 58 ml/min; Glucose 108 mg/dl (70-99); Potassium 4.4 mmol/L (3.5-5.1); Sodium 138 mmol/L (135-145); eGFR > 60.00
[2024-12-18] MEDS: REFRESH CELLUVISC GEL 1 DROPS BOTH EYES (07:56)
[2024-12-18] MEDS: ZYLOPRIM 450 MG PO (07:56)
[2024-12-18] MEDS: PROTONIX 40 MG PO (07:58)
[2024-12-18] MEDS: COUMADIN 1 MG PO (07:58)
[2024-12-18] MEDS: COUMADIN 2.5 MG PO (07:58)
[2024-12-18] MEDS: PROSCAR 5 MG PO (07:59)
[2024-12-18] MEDS: KCL 20 MEQ PO (07:59)
[2024-12-18] MEDS: MAXIPIME 1000 MG IV ×2 (07:59→17:19)
[2024-12-18] MEDS: STERILE WATER FOR INJECTION 10 ML IV ×2 (07:59→17:19)
[2024-12-18] MEDS: ZYRTEC 10 MG PO (07:59)
[2024-12-18] MEDS: PRISTIQ 25 MG PO (07:59)
[2024-12-18] MEDS: NON-FORMULARY ITEM 1 UNIT PO (08:00)
--- NOTE | 2024-12-18 11:16 | W.DCSUMMARY ---
Discharge Summary
Discharge Data
Date of Admission: 12/17/24
Date of Discharge: 12/18/24
-
Pending Results: No
Hospital Course
Impression:
Acute hypoxic respiratory failure secondary to pneumonia.
Sepsis secondary to above present on admission (fever, hypotension, TME)
Toxic metabolic encephalopathy secondary to sepsis and hypotension.
Bilateral right greater than left pneumonia secondary to aspiration
Lactic acidosis
Conditions prior to admission:
History of CVA with left hemiparesis
CAD status post CABG
Chronic atrial fibrillation/flutter
Anticoagulation with Coumadin
Essential hypertension.
CHF unknown EF.
COPD
Obstructive sleep apnea
Acute cholecystitis treated with percutaneous cholecystostomy tube currently in place
GERD
FABIAN
Poor dentition/partial loss of teeth with current extraction.
BPH
Gout
Plan:
Acute hypoxic respiratory failure secondary to bilateral pneumonia
Aspiration pneumonia
Sepsis with hypotension.
Toxic metabolic encephalopathy secondary to above.
Reported to have hypoxia in mid 80s on room air prior to admission from nursing facility.
Noted elevated lactic acid level
Noted leukocytosis
Chest x-ray with bilateral right greater than left infiltrate also seen on the CT scan.
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
Recent dental work with extraction while waiting for dentures definitely increased aspiration risk.
Continue oxygen supplementation
Aspiration precautions.
Speech and swallow evaluation noted and confirming silent aspiration.
Findings discussed with patient and spouse at the bedside
Patient would note consider any aggressive measures of treatment including artificial life support or feeding.
Patient excepted comfort feeding with modified diet including pur�ed food and thin liquids
Overall respiratory status improved and stable well patient is not in respiratory distress maintaining on oxygen supplementation at 2 L nasal cannula.
Temperature curve improving.
WBC trending down from 24-13
Blood cultures negative to date
MRSA screen positive
Continue current antibiotics vancomycin and cefepime
Continue aggressive pulmonary toilet
COPD/obstructive sleep apnea
Not on supplemental oxygen prior to admission.
Had been on CPAP at night
Continue O2 supplementation
CAD.
Essential hypertension
Continue present regimen including metoprolol and Hytrin
Monitor blood pressure trend while on IV fluids
Continue statin
Permanent atrial fibrillation/flutter.
Continue metoprolol for rate control
Continue anticoagulation with Coumadin.
Bridged to therapeutic INR with Lovenox weight-based
Percutaneous cholecystostomy in place
Abdominal examination benign.
Normal LFT on presentation.
CT scan of the abdomen and pelvis with no acute abnormalities confirming cholecystostomy placement
GERD
Continue PPI
BPH
Monitor for retention
Continue Proscar
Gout continue allopurinol
Disposition: As per request of patient's and given patient primary physician including cardiology and pulmonology services at [facility], plan is to transfer for further care.
Discharge Plan
-
Patient Disposition: Acute Care Hospital
Discharge Orders:
Discharge Patient (As Directed); Ordered 12/18/24
Ordered By: Steven Luna
Discharge Date and Time
Print Language: BAHRAINI
--- NOTE | 2024-12-18 11:22 | PTCARENOTE ---
Pt assessed, confused and forgetful, unsure of where he is right now. Reoriented and pt is still slightly anxious. NSR with frequent PVC's. Breath sounds coarse penitentiary up, currently on 2L NC sat of 95%. Incontinent of bowel and bladder, pt cleaned
after being grossly incontinent of urine. R Althea drain flushed with 10 mls NSS, foul smelling yellow drainage measured and discarded. Pills given crushed in applesauce, pt took without difficulty. Pt's called shortly after assessment. She
tells me she is transferring the pt to [facility]. I directed her to the renal case manager and made sure she had the correct number. Pt's called again to update the IMU drying unit felting machine operator of his transfer status.
[2024-12-18] MEDS: LOPRESSOR PO (12:02)
[2024-12-18] MEDS: LR 1000 IV (12:04)
--- NOTE | 2024-12-18 13:12 | PHA.VAN.FU ---
Vancomycin Assessment / Plan
- Assessment
Renal Function: Stable
WBC's are: Trending Down
In the past 24 hrs, patient has been: Hypothermic (94)
Concomitant Antimicrobials: CEFEPIME
- Dosing Plan
Continue: VANC 1250 MG Q24H
- Monitoring Plan
No level(s) ordered at this time: consider in the upcoming days
- Follow Up
Pharmacy will continue to follow.
Vancomycin Follow UP
- -
Patient Age: 84
Patient Sex: Female
Vancomycin Day #: 2
Indication: Pulmonary/Respiratory
Requesting Provider: Shwetha
Pertinent Antimicrobial Allergies:
cephalexin - itching
Height / Weight:
Height 6 ft
Actual Weight 75.1 kg
Pertinent Past Medical History: COPD
- Vital Signs / Lab Results
Temp Pulse Resp BP Pulse Ox
98.0 F 59 25 99/56 95
12/18/24 10:58 12/18/24 12:02 12/18/24 10:00 12/18/24 12:02 12/18/24 10:00
Lab Results - Hematology
12/16/24 12/17/24 12/18/24
20:26 05:53 05:28
WBC 15.9 H 24.9 H 13.5 H
Lab Results - Chemistry
12/16/24 12/17/24 12/18/24
20:26 05:53 05:28
BUN 33 H 33 H 34 H
Creatinine 1.1 1.1 1.0
Estimated Creat Clear 55 51 58
Albumin 4.5
12/16/24 12/17/24 12/17/24
20:26 01:50 05:53
Lactic Acid 2.4 H 1.8 2.3 H
12/17/24
08:51
Lactic Acid 1.8
Microbiology Results
12/17/24 01:50 MRSA Screen - Final
Nose Staph aureus MRSA
12/16/24 20:26 Blood Culture - Preliminary
Blood/Venous No Growth in 24 hours- Final report to follow
12/16/24 20:26 Blood Culture - Preliminary
Blood/Venous No Growth in 24 hours- Final report to follow
12/16/24 20:26 Influenza Types A & B (GINA) - Final
Nasal Swab Negative for Influenza A & B, NAAT
Negative results must be combined with clinical observations
and patient history.
Nucleic Acid Amplification test (NAAT)performed on the
[employer] platform.
--- NOTE | 2024-12-18 14:15 | CM ---
Addendum entered by Lolis Ring 12/18/24 14:24:
Patient scheduled for 5:00 p.m. ambulance, updated, requesting patient be sent with dog pillow, prescription mouth wash, glasses, hearing aides.
Original Note:
CM reviewed chart, CM spoke with patients Ana, requesting transfer to [facility], reports accepting Physician is Emil Hernandez. Patient has been accepted for transfer, ambulance transport forms on chart. Call to patients
, aware transfer has been accepted and bed available for today, will await transport time. CM will continue to follow for all discharge planning needs.
Plan; Transfer to [facility], ambulance transport
== END 2024-12-18 17:34 | disposition short-term general hospital (02) | DRG 871 ==
LOC: IMU 00:02
PROVIDERS: Physician Assistant; Registered Nurse; ADMITTING PHYSICIAN Internal Medicine; ATTENDING PHYSICIAN Internal Medicine; EMERGENCY PHYSICIAN Emergency Medicine; FAMILY PHYSICIAN Internal Medicine Geriatric Medicine
DX: A41.89 Other specified sepsis (principal); G92.8 Other toxic encephalopathy; J18.9 Pneumonia, unspecified organism; J96.01 Acute respiratory failure with hypoxia; J69.0 Pneumonitis due to inhalation of food and vomit; I48.21 Permanent atrial fibrillation; I50.32 Chronic diastolic (congestive) heart failure; I69.354 Hemiplegia and hemiparesis following cerebral infarction affecting left non-dominant side; J44.0 Chronic obstructive pulmonary disease with (acute) lower respiratory infection; E87.20 Acidosis, unspecified; K81.0 Acute cholecystitis; I48.92 Unspecified atrial flutter; R65.20 Severe sepsis without septic shock; K59.00 Constipation, unspecified; I11.0 Hypertensive heart disease with heart failure; I27.20 Pulmonary hypertension, unspecified; M10.9 Gout, unspecified; N40.0 Benign prostatic hyperplasia without lower urinary tract symptoms; F51.04 Psychophysiologic insomnia; F32.A Depression, unspecified; G47.33 Obstructive sleep apnea (adult) (pediatric); I25.10 Atherosclerotic heart disease of native coronary artery without angina pectoris; E78.00 Pure hypercholesterolemia, unspecified; F41.9 Anxiety disorder, unspecified; K08.409 Partial loss of teeth, unspecified cause, unspecified class; R13.10 Dysphagia, unspecified; K75.81 Nonalcoholic steatohepatitis (NASH); K21.9 Gastro-esophageal reflux disease without esophagitis; Z66 Do not resuscitate; Z95.1 Presence of aortocoronary bypass graft; Z79.01 Long term (current) use of anticoagulants; Z88.1 Allergy status to other antibiotic agents; Z11.52 Encounter for screening for COVID-19
CPT/HCPCS: 71046; 74177; 74230; 80048; 80053; 83605; 85025; 85027; 85610; 87040; 87070; 87502; 87811; 92610; 92611; 93005; 97163; 97167; 99285; Q9967